=== PATIENT | female | born 1960 | race Caucasian/White ===

== ENCOUNTER 2016-07-18 12:09 | Emergency (ER) | payer OTHER ==
[~2016-07-18] VITALS: Ht 162.5 cm; Wt 64.4 kg
[~2016-07-18 12:09] MED LIST: ANTIVERT/2525 MG PO; ASPIRIN81 M1 PO; AUGMENTIN 875-875 MG PO; BENTYL10 MG PO; BRIN20TA PO; CLARITIN10 MG PO; FLONASE ALLERG9.9 ML NAS; HYDROCODONE BIT1 T11 PO; KEPPRA500 MG PO; MEDROL DOSEPAK4 MG PO; MOTRIN 600 MG E4 TAB PO; MULTI-VITAMIN1 EACH PO; NEURONTIN300 MG PO; PEPCID AC10 M1 PO; PERCOCET 325 MG1 TA7 PO; PRILOSEC20 M1 PO; SKELAXIN800 M1 PO; TRAMADOL HCL50 MG PO; TRAZODONE50 MG PO; VIMPAT200 MG PO; VOLTAREN11; XANAX0.25 MG PO; XANAX1 MG PO
[2016-07-18] MEDS ORDERED: PREDNISONE20 M1 PO (14:09)
[2016-07-18] MEDS ORDERED: HYDROCODONE BIT1 T11 PO (14:09)
== END 2016-07-18 14:14 | disposition home or self-care (01) ==
LOC: ED 12:09
DX: M79.601 Pain in right arm (principal); F17.200 Nicotine dependence, unspecified, uncomplicated; Z88.6 Allergy status to analgesic agent; Z88.8 Allergy status to other drugs, medicaments and biological substances; Z79.82 Long term (current) use of aspirin; Z79.899 Other long term (current) drug therapy

== ENCOUNTER → 2016-08-01 | Outpatient (CLI) | payer OTHER ==
[~2016-08-01] MED LIST changes: +PREDNISONE20 M1 PO
[2016-08-01 12:00] LABS: BASO % 0.4 % (0.0-1.0); EOS # 0.1 10*3/uL (0.0-0.4); EOS % 1.3 % (1.0-4.0); HEMOGLOBIN 14.6 g/dl (12.0-16.0); LYMPH # 3.2 10*3/uL (1.3-4.4); LYMPH % 40.6 % (27.0-41.0); MEAN CELL VOLUME 91.1 fl (81.0-99.0); MEAN CORPUSCULAR HGB 30.2 pg (27.0-31.0); MEAN CORPUSCULAR HGB CONC 33.2 g/dl (33.0-37.0); MEAN PLATELET VOLUME 10.1 fl (9.6-12.3); MONO # 0.7 10*3/uL (0.1-1.0); NEUT # 3.9 10*3/uL (2.3-7.9); NEUT % 48.4 % (47.0-73.0); PLATELET COUNT AUTOMATED 246 10*3/uL (130-400); RED BLOOD COUNT 4.83 10*6/uL (4.10-5.10)
[2016-08-01 12:30] LABS: URIC ACID 5.2 mg/dL (2.6-6.0)
[2016-08-01 12:36] LABS: C-REACTIVE PROTEIN < 0.29 MG/DL (0-0.3)
[2016-08-02 08:09] LABS: RHEUMATOID ARTHRITIS FACTOR <10.0 IU/mL (0.0-13.9)
== END | disposition home or self-care (01) ==
LOC: ORTHO 02:46 → LAB 02:46 → ORTHO 19:12
PROVIDERS: Orthopaedic Surgery
DX: M25.531 Pain in right wrist (principal)

== ENCOUNTER → 2016-11-03 | Outpatient (CLI) | payer OTHER | END | disposition home or self-care (01) | LOC: CT 10-28 13:00 | DX: S09.92XA Unspecified injury of nose, initial encounter (principal); S09.93XA Unspecified injury of face, initial encounter; X58.XXXA Exposure to other specified factors, initial encounter; Y93.89 Activity, other specified; Y92.89 Other specified places as the place of occurrence of the external cause; Y99.8 Other external cause status ==

== ENCOUNTER → 2017-09-29 | Outpatient (CLI) | payer OTHER ==
[2017-09-29 17:26] LABS: ALBUMIN 3.7 gm/dl (3.1-4.5); BUN 8 mg/dl (7-24); CHLORIDE 113 mmol/L (98-107); CREATININE 0.69 mg/dL (0.55-1.02); POTASSIUM 4.3 mmol/L (3.5-5.1); SGOT/AST 25 IU/L (3-35); SGPT/ALT 28 U/L (12-78); SODIUM 145 mmol/L (136-145); TOTAL PROTEIN 6.9 gm/dL (6.4-8.2)
[2017-09-29 17:28] LABS: ALKALINE PHOSPHATASE 79 U/L (45-117)
[2017-09-30 06:15] LABS: HEPATITIS B SURFACE AG Negative (Negative); HEPATITIS C VIRUS ANTIBODY 6.1 s/co (0.0-0.9); HIV 1+2 AB + HIV1 P24 AG Non Reactive (Non Reactive)
[2017-09-30 22:06] LABS: HEPATITIS C QNT HCV Not Detected IU/mL (.)
== END | disposition home or self-care (01) ==
LOC: LAB 16:39 → MAMMO 16:40
PROVIDERS: Family Medicine
DX: Z12.31 Encounter for screening mammogram for malignant neoplasm of breast (principal); R76.8 Other specified abnormal immunological findings in serum

== ENCOUNTER → 2017-11-11 | Outpatient (CLI) | payer OTHER | END | disposition home or self-care (01) | LOC: US 09:20 | DX: B18.2 Chronic viral hepatitis C (principal) ==

== ENCOUNTER → 2017-12-11 | Outpatient (CLI) | payer OTHER ==
[2017-12-12 21:07] LABS: HEPATITIS C QNT HCV Not Detected IU/mL (.)
== END | disposition home or self-care (01) ==
LOC: LAB 11:19
PROVIDERS: Nurse Practitioner Family
DX: B18.2 Chronic viral hepatitis C (principal)

== ENCOUNTER 2020-08-03 12:12 | Emergency (ER) | payer SELFPAY ==
[~2020-08-03] VITALS: Ht 162.5 cm; Wt 72.6 kg
[~2020-08-03 12:12] MED LIST changes: +PERCOCET 5-3251 EACH PO
[2020-08-03 12:17] VITALS: BP 124/52
[2020-08-03] MEDS ORDERED: HYDROCODONE-AC1 EAC1 PO (15:34)
== END 2020-08-03 15:43 | disposition home or self-care (01) ==
LOC: ED 12:12
DX: S92.321A Displaced fracture of second metatarsal bone, right foot, initial encounter for closed fracture (principal); S92.331A Displaced fracture of third metatarsal bone, right foot, initial encounter for closed fracture; G43.909 Migraine, unspecified, not intractable, without status migrainosus; F32.9 Major depressive disorder, single episode, unspecified; F17.200 Nicotine dependence, unspecified, uncomplicated; Z88.5 Allergy status to narcotic agent; Z88.8 Allergy status to other drugs, medicaments and biological substances; Z98.51 Tubal ligation status; Z90.711 Acquired absence of uterus with remaining cervical stump; X58.XXXA Exposure to other specified factors, initial encounter; Y93.89 Activity, other specified; Y92.89 Other specified places as the place of occurrence of the external cause; Y99.8 Other external cause status

== ENCOUNTER 2020-08-14 12:52 | Emergency (ER) | payer SELFPAY ==
[~2020-08-14] VITALS: Wt 72.1 kg
[~2020-08-14 12:52] MED LIST changes: +HYDROCODONE-AC1 EAC1 PO
[2020-08-14 12:58] VITALS: BP 117/58
[2020-08-14] MEDS ORDERED: PERCOCET 5-3251 EACH PO (14:00)
== END 2020-08-14 14:25 | disposition home or self-care (01) ==
LOC: ED 12:52
DX: S92.331A Displaced fracture of third metatarsal bone, right foot, initial encounter for closed fracture (principal); S92.341A Displaced fracture of fourth metatarsal bone, right foot, initial encounter for closed fracture; F17.200 Nicotine dependence, unspecified, uncomplicated; Z88.8 Allergy status to other drugs, medicaments and biological substances; Z88.5 Allergy status to narcotic agent; Z98.51 Tubal ligation status; Z90.710 Acquired absence of both cervix and uterus; X58.XXXA Exposure to other specified factors, initial encounter; Y93.89 Activity, other specified; Y92.89 Other specified places as the place of occurrence of the external cause; Y99.8 Other external cause status

== ENCOUNTER → 2021-08-12 | Outpatient (CLI) | payer SELFPAY | END | disposition home or self-care (01) | LOC: RAD 10:54 | PROVIDERS: ATTEND Nurse Practitioner Family | DX: M17.12 Unilateral primary osteoarthritis, left knee (principal); M16.12 Unilateral primary osteoarthritis, left hip ==

== ENCOUNTER → 2021-11-20 | Outpatient (CLI) | payer OTHER | END | disposition home or self-care (01) | LOC: MAMMO 11:14 | PROVIDERS: ATTEND Nurse Practitioner Family | DX: Z12.31 Encounter for screening mammogram for malignant neoplasm of breast (principal); N63.24 Unspecified lump in the left breast, lower inner quadrant; N64.89 Other specified disorders of breast ==

== ENCOUNTER → 2021-12-10 | Outpatient (CLI) | payer OTHER | END | disposition home or self-care (01) | LOC: US 11:30 | PROVIDERS: ATTEND Nurse Practitioner Family | DX: N63.20 Unspecified lump in the left breast, unspecified quadrant (principal); N64.9 Disorder of breast, unspecified; N60.02 Solitary cyst of left breast ==

== ENCOUNTER → 2022-06-26 | Outpatient (CLI) | payer OTHER | END | disposition home or self-care (01) | LOC: MAMMO 06-11 10:00 → US 06-11 10:00 → MAMMO 13:28 | PROVIDERS: ATTEND Nurse Practitioner Family | DX: N63.20 Unspecified lump in the left breast, unspecified quadrant (principal); R92.1 Mammographic calcification found on diagnostic imaging of breast ==